=== PATIENT | female | born 1945 | race Two or more races ===

== ENCOUNTER 2019-02-02 13:06 | Outpatient (CLI) | payer OTHER ==
[~2019-02-02 13:06] MED LIST: CEFADROXIL500 MG PO; METROPOLOL; NEUROTIN; PERCOCET 5/3251 TAB PO; SYNTHROID75 MCG PO; XARELTO10 MG PO
== END 2019-02-02 13:45 | disposition home or self-care (01) ==
LOC: SONOGRAMA 13:06 → MAMO-SONO 13:15 → SONOGRAMA 13:45
DX: M75.102 Unspecified rotator cuff tear or rupture of left shoulder, not specified as traumatic (principal)

== ENCOUNTER 2019-04-01 14:09 | Outpatient (CLI) | payer OTHER | END 2019-04-01 16:23 | disposition home or self-care (01) | LOC: RAD 14:09 | DX: M54.5 Low back pain (principal); M75.30 Calcific tendinitis of unspecified shoulder ==

== ENCOUNTER → 2019-04-29 | Outpatient (CLI) | payer OTHER | END | disposition home or self-care (01) | LOC: RAD 11:38 | DX: M25.572 Pain in left ankle and joints of left foot (principal) ==

== ENCOUNTER 2019-06-06 14:47 | Emergency (ER) | payer OTHER ==
[~2019-06-06] VITALS: Ht 154.9 cm; Wt 64.4 kg
== END 2019-06-06 17:40 | disposition home or self-care (01) ==
LOC: ER 14:47
DX: H11.33 Conjunctival hemorrhage, bilateral (principal)

== ENCOUNTER 2019-06-16 14:58 | Outpatient (CLI) | payer OTHER | END 2019-06-16 15:05 | disposition home or self-care (01) | LOC: SONOGRAMA 14:58 | DX: M75.102 Unspecified rotator cuff tear or rupture of left shoulder, not specified as traumatic (principal) ==

== ENCOUNTER 2019-06-27 09:43 | Outpatient (CLI) | payer OTHER | END 2019-06-27 09:55 | disposition home or self-care (01) | LOC: LAB 09:43 | DX: D50.8 Other iron deficiency anemias (principal); I10 Essential (primary) hypertension; E55.9 Vitamin D deficiency, unspecified; D68.8 Other specified coagulation defects; D68.0 Von Willebrand disease; R97.0 Elevated carcinoembryonic antigen [CEA]; R97.8 Other abnormal tumor markers; G30.0 Alzheimer's disease with early onset; E03.8 Other specified hypothyroidism; K57.30 Diverticulosis of large intestine without perforation or abscess without bleeding ==

== ENCOUNTER → 2020-01-13 | Emergency (ER) | payer OTHER ==
[~2020-01-13] VITALS: Ht 154.9 cm; Wt 65.8 kg
[~2020-01-13] MED LIST changes: +ACETAMINOPHEN650 MG PO; +MECLIZINE HCL25 MG PO; +METOPROLOL TART50 MG PO; +ORPHENADRINE C100 MG PO; +VOLTAREN100 GM TOP
== END | disposition left against medical advice (07) ==
LOC: ER 00:09
DX: Z53.20 Procedure and treatment not carried out because of patient's decision for unspecified reasons (principal)

== ENCOUNTER 2020-01-15 09:51 | Emergency (ER) | payer OTHER ==
[~2020-01-15] VITALS: Ht 154.9 cm; Wt 68.0 kg
[~2020-01-15 09:51] MED LIST changes: -ACETAMINOPHEN650 MG PO; -MECLIZINE HCL25 MG PO; -METOPROLOL TART50 MG PO; -ORPHENADRINE C100 MG PO
[2020-01-15] MEDS ORDERED: METOPROLOL TART50 MG PO (10:05)
[2020-01-15] MEDS ORDERED: ACETAMINOPHEN650 MG PO (16:34)
[2020-01-15] MEDS ORDERED: MECLIZINE HCL25 MG PO (16:34)
[2020-01-15] MEDS ORDERED: ORPHENADRINE C100 MG PO (16:34)
== END 2020-01-15 17:58 | disposition home or self-care (01) ==
LOC: ER 09:51
DX: R51 Headache (principal); R42 Dizziness and giddiness; Z03.818 Encounter for observation for suspected exposure to other biological agents ruled out

== ENCOUNTER 2021-08-22 13:12 | Outpatient (CLI) | payer OTHER ==
[~2021-08-22 13:12] MED LIST changes: +ACETAMINOPHEN650 MG PO; +MECLIZINE HCL25 MG PO; +METOPROLOL TART50 MG PO; +ORPHENADRINE C100 MG PO
== END 2021-08-22 13:17 | disposition home or self-care (01) ==
LOC: MAMO-SONO 13:12
PROVIDERS: ATTEND Internal Medicine
DX: N60.11 Diffuse cystic mastopathy of right breast (principal); N60.12 Diffuse cystic mastopathy of left breast

== ENCOUNTER 2022-03-26 08:09 | Outpatient (CLI) | payer OTHER | END 2022-03-26 08:10 | disposition home or self-care (01) | LOC: LAB 08:09 | PROVIDERS: ATTEND Internal Medicine Hematology & Oncology | DX: D50.8 Other iron deficiency anemias (principal); I10 Essential (primary) hypertension; R74.02 Elevation of levels of lactic acid dehydrogenase [LDH]; K76.89 Other specified diseases of liver; D68.8 Other specified coagulation defects; D69.1 Qualitative platelet defects; N39.0 Urinary tract infection, site not specified; E03.8 Other specified hypothyroidism ==

== ENCOUNTER 2023-06-18 13:06 | Outpatient (CLI) | payer OTHER | END 2023-06-18 13:23 | disposition home or self-care (01) | LOC: MAMO-SONO 13:06 | PROVIDERS: ATTEND Internal Medicine | DX: Z12.31 Encounter for screening mammogram for malignant neoplasm of breast (principal); Z12.39 Encounter for other screening for malignant neoplasm of breast; M54.2 Cervicalgia ==

== ENCOUNTER 2023-11-04 14:36 | Outpatient (CLI) | payer OTHER | END 2023-11-04 14:45 | disposition home or self-care (01) | LOC: RAD 14:36 | PROVIDERS: ATTEND Internal Medicine | DX: M79.0 Rheumatism, unspecified (principal); E03.9 Hypothyroidism, unspecified ==

== ENCOUNTER 2024-01-12 07:37 | Outpatient (CLI) | payer OTHER | END 2024-01-12 07:38 | disposition home or self-care (01) | LOC: NUCLEAR 07:37 | PROVIDERS: ATTEND Internal Medicine | DX: I20.9 Angina pectoris, unspecified (principal) | CPT/HCPCS: 78452; 93017; A9500; J0153 ==

== ENCOUNTER 2024-02-19 11:04 | Outpatient (CLI) | payer OTHER | END 2024-02-19 11:17 | disposition home or self-care (01) | LOC: MRI 11:04 | PROVIDERS: ATTEND Internal Medicine | DX: R51.9 Headache, unspecified (principal) | CPT/HCPCS: 70551 ==

== ENCOUNTER 2024-06-23 13:40 | Outpatient (CLI) | payer OTHER | END 2024-06-23 13:52 | disposition home or self-care (01) | LOC: MAMO-SONO 13:40 | PROVIDERS: ATTEND Internal Medicine | DX: N60.29 Fibroadenosis of unspecified breast (principal); Z12.31 Encounter for screening mammogram for malignant neoplasm of breast ==

== ENCOUNTER → 2024-07-14 | Outpatient (CLI) | payer OTHER | END | disposition home or self-care (01) | LOC: NUCLEAR 12:31 | PROVIDERS: ATTEND Internal Medicine | DX: Z13.820 Encounter for screening for osteoporosis (principal); M81.0 Age-related osteoporosis without current pathological fracture ==

== ENCOUNTER 2024-09-30 13:10 | Emergency (ER) | payer OTHER ==
[~2024-09-30] VITALS: Ht 154.9 cm; Wt 63.5 kg
[2024-09-30] MEDS ORDERED: ORPHENADRINE CITRATE 30 MG/ML AMPUL IM ONE (13:45)
[2024-09-30] MEDS ORDERED: ORPHENADRINE CITRATE 30 MG/ML AMPUL ONE (13:57)
[2024-09-30 14:30] LABS: BASO % 0.1 % (0.1-1.2); HEMATOCRIT 37.3 % (34.1-44.9); HEMOGLOBIN 12.7 g/dL (11.2-15.7); LYMPH # 1.34 (1.18-3.74); LYMPH % 9.9 % (19.3-53.1); MEAN CORPUSCULAR HEMOGLOBIN 31.6 pg (25.6-32.2); MONO % 6.7 % (4.7-12.5); NEUT # 11.15 (1.56-6.13); NEUT % 82.6 % (34.0-71.1); PLATELET COUNT 362 K/uL (163-369); RED BLOOD COUNT 4.02 M/uL (3.93-5.22); RED CELL DISTRIBUTION WIDTH 13.2 % (11.6-14.4)
[2024-09-30 14:51] LABS: ERYTHROCYTE SEDIMENTATION RATE 69 mm/hr (0-30)
[2024-09-30 15:42] LABS: CALCIUM 9.7 mg/dL (8.5-10.1); CREATININE SERUM 0.86 mg/dL (0.55-1.02); GFR 63.65; POTASSIUM 4.11 mEq/L (3.5-5.1); URIC ACID 5.7 mg/dL (2.5-7.5)
[2024-09-30] MEDS ORDERED: PEPCID AC20 MG PO (17:20)
[2024-09-30] MEDS ORDERED: CEFUROXIME500 MG PO (17:20)
== END 2024-09-30 17:29 | disposition home or self-care (01) ==
LOC: ER 13:10
PROVIDERS: Emergency Medicine
DX: M25.569 Pain in unspecified knee (principal); I10 Essential (primary) hypertension; E03.8 Other specified hypothyroidism; Z88.2 Allergy status to sulfonamides; Z88.6 Allergy status to analgesic agent
CPT/HCPCS: 36415; 73560; 96372; 99283; J2360

== ENCOUNTER 2024-10-24 10:54 | Outpatient (CLI) | payer OTHER ==
[~2024-10-24 10:54] MED LIST changes: +CEFUROXIME500 MG PO; +PEPCID AC20 MG PO
[2024-10-24 12:05] LABS: BASO % 0.3 % (0.1-1.2); EOS # 0.04 (0.04-0.54); EOS % 0.5 % (0.7-7.0); LYMPH # 3.67 (1.18-3.74); LYMPH % 46.0 % (19.3-53.1); MEAN PLATELET VOLUME 9.90 fl (9.4-12.4); MONO # 0.65 (0.24-0.82); MONO % 8.2 % (4.7-12.5); NEUT # 3.57 (1.56-6.13); NEUT % 44.7 % (34.0-71.1); RED CELL DISTRIBUTION WIDTH 13.2 % (11.6-14.4)
[2024-10-24 12:06] LABS: ERYTHROCYTE SEDIMENTATION RATE 65 mm/hr (0-30); URINE APPEARANCE Clear; URINE BILIRRUBIN Negative (NEGATIVE); URINE BLOOD Negative; URINE COLOR Yellow; URINE GLUCOSE Negative (NEGATIVE); URINE KETONE Trace (NEGATIVE); URINE LEUKOCYTE Small; URINE NITRATE Negative; URINE PROTEIN Negative (NEGATIVE); URINE UROBILINOGEN 1.0 E.U./dl
[2024-10-24 12:10] LABS: URINE BACTERIA 11.9 uL (0.0-1933); URINE EPITHELIAL CELLS 3.0 uL (0.0-38.8); URINE RBC 3.2 uL (0.0-20.8); URINE WBC 4.7 uL (0.0-23.2)
[2024-10-24 12:24] LABS: URINE CAST 0.14 uL (0.0-1.40)
[2024-10-24 12:38] LABS: COL EPI 115 SECONDS (82-175)
[2024-10-24 13:01] LABS: INR 0.98
[2024-10-24 13:09] LABS: ALT/SGPT 43.0 U/L (12-78); AST/SGOT 27.0 U/L (15-37); BILIRUBIN TOTAL 0.46 mg/dL (0.3-1.2); BUN CREA RATIO 21.0 (7.0-25.0); CHOL HDL RATIO 3.9 (0-5.0); CREATININE SERUM 0.58 mg/dL (0.55-1.02); FE 27.0 ug/dl (50-170); FREE TRIODOTIRONINE 1.61 pg/ml (2.18-3.98); GFR 100.28; GLOBULINA 3.4 G/DL (2.4-3.5); GLUCOSE FASTING 97.0 mg/dL (65-100); HDL 37.0 mg/dl (40-60); LDH 201.0 U/L (84-246); OSMOLALITY SERUM 281.0 MOSM/KG (275-295); T4 TOTAL 7.84 UG/DL (4.8-13.9); TSH 3.47 uIU/mL (0.358-3.74)
[2024-10-24 13:12] LABS: LDL 62.0 mg/dl (0-130); VLDL 45.0 (0-39)
[2024-10-24 13:39] LABS: FOLIC ACID > 20.00 ng/ml (4.78-20); VITAMIN D3 25 HYDROXY 33.95 ng/ml (30-120)
== END 2024-10-24 11:05 | disposition home or self-care (01) ==
LOC: LAB 10:54
PROVIDERS: ATTEND Internal Medicine
DX: I11.9 Hypertensive heart disease without heart failure (principal); E03.9 Hypothyroidism, unspecified; Z12.11 Encounter for screening for malignant neoplasm of colon; E78.00 Pure hypercholesterolemia, unspecified; R73.9 Hyperglycemia, unspecified; E55.9 Vitamin D deficiency, unspecified; D68.00 Von Willebrand disease, unspecified; M10.9 Gout, unspecified; D68.01 Von Willebrand disease, type 1; G30.0 Alzheimer's disease with early onset; E03.8 Other specified hypothyroidism; K57.30 Diverticulosis of large intestine without perforation or abscess without bleeding; I10 Essential (primary) hypertension; N39.0 Urinary tract infection, site not specified

== ENCOUNTER 2024-11-15 15:25 | Outpatient (CLI) | payer OTHER | END 2024-11-15 15:31 | disposition home or self-care (01) | LOC: RAD 15:25 | PROVIDERS: ATTEND Internal Medicine | DX: S80.912A Unspecified superficial injury of left knee, initial encounter (principal) ==